=== PATIENT | male | born 1975 | race Caucasian/White ===

== ENCOUNTER 2017-04-28 16:12 | Inpatient (IN) ==
[2017-04-28] MEDS ORDERED: PANTOPRAZOLE 40 MG VIAL IV STA (16:42)
[2017-04-28] MEDS ORDERED: METOCLOPRAMIDE 10 MG/2 ML VIAL IV STA (16:42)
[2017-04-28] MEDS ORDERED: SODIUM CHLORIDE 0.9% 1,000 ML IV STA (16:42)
[2017-04-28] MEDS ORDERED: ONDANSETRON 4 MG/2 ML VIAL IV STA (16:42)
--- NOTE | 2017-04-28 16:50 | Emergency Department Note ---
Arrival - Arrival Chief Complaint: Abdominal / Flank Pain ED Nursing Triage Note: c/o abd pain for 3 days and n/v. Mode of Arrival: Stretcher Limitations: No Limitations Source: Patient Time Seen by Provider: 04/28/17 16:42 - History of Present Illness HPI Narrative: This 41-year-old white male [facility] resident presents with 3 days of increasing abdominal distention, nausea, and intermittent vomiting. The patient denies any chills, fever, diarrhea, bright red blood per rectum, melena , or abdominal pain. The patient does have a significant history of a bowel obstruction approximately 1 month to 6 weeks ago which was surgically treated and [place]. He has had an uncomplicated convalescence to this date and time. He does relate that his vomitus is nonspecific in appearance and does not appear as coffee grounds or red blood and does report his last bowel movement was last night. He is a resident of [facility] for treatment of undifferentiated schizophrenia and does exhibit bizarre affect and is strangely detached from his situation. Onset (ago): day(s) (Patient presents 3 days post onset of symptoms) Allergies/Adverse Reactions: Allergies Allergy/AdvReac Type Severity Reaction Status Date / Time hydroxyzine [From Vistaril] Allergy Unknown/Unable Verified 04/28/17 16:24 to obtain Home Medications: Home Medications Medication Instructions Recorded Confirmed Type Acetaminophen Tab [Tylenol Tab] 650 mg PO Q6H PRN 04/28/17 04/28/17 History Benztropine Tab [Cogentin Tab] 1 mg PO BID 04/28/17 04/28/17 History Haloperidol 10 mg PO DAILY 04/28/17 04/28/17 History Loperamide Cap [Imodium Cap] 4 mg PO TID PRN 04/28/17 04/28/17 History Magnesium Hydroxide Susp [Milk of 30 ml PO Q12H PRN 04/28/17 04/28/17 History Magnesia] Omeprazole 40 mg PO DAILY 04/28/17 04/28/17 History Ondansetron [Ondansetron Odt] 8 mg PO Q8H PRN 04/28/17 04/28/17 History Sucralfate Tab [Carafate Tab] 1 gm PO TID W/MEALS 04/28/17 04/28/17 History traZODone [Desyrel] 150 mg PO BEDTIME PRN 04/28/17 04/28/17 History Review of System - Review of System 12 point system: reviewed and no additional remarkable complaints except as stated - Review of System Constitutional: Present: as per HPI Gastrointestinal: Present: as per HPI Medical,Surgical,& Family Hx - Medical History Psychological: History of: Schizophrenia Gastrointestinal: History of: GERD, GI Problems (multi abd surgeries and resections; sbo) - Social History Smoking Status: Smoker, status unknown Frequency of Alcohol Use: Occasionally Type of Drug Use: Unknown Exam Physical Examination: GENERAL: Obese white male in no acute distress. HEENT: Normocephalic. No trauma. Moist mucous membranes. EOMI. PERRLA. ENT NML NECK: Supple. No adenopathy. CARDIAC: Regular. No murmurs. Heart rate 94 CHEST: Clear to auscultation. No respiratory distress. O2 sat 95% ABDOMEN: Firm, distended, nontender with hypoactive bowel sounds. Well-healing vertical surgical scar noted EXTREMITIES: No trauma. Normal ROM. No pedal edema. SKIN: No diaphoresis. No rash. NEURO: Alert. Oriented 3 but bizarre affect. Motor, sensory, vibratory intact. No focal deficits. Vital Signs: Vital Signs Temperature 97.9 F 04/28/17 16:20 Pulse Rate 99 H 04/28/17 19:08 Respiratory Rate 18 04/28/17 19:08 Blood Pressure 107/72 04/28/17 19:08 O2 Sat by Pulse Oximetry 98 04/28/17 19:08 Course - Reevaluation(s) Reevaluation #1: Advised the patient and [facility] of the need for hospitalization because of a surgical abdomen. - Consultations Consultation #1: Discussed with Dr. Serrano who will see the patient in the ER for further management and admission. Results - Labs CBC & BMP: 04/28/17 17:34 04/28/17 17:34 Lab Results: I have reviewed the patients labs Labs: I have reviewed the laboratory noted the azotemic renal numbers. - Impressions EKG sinus rhythm at 97 with occasional PAC with normal [place] interval and QRS duration. Evidence of LVH as well as old inferior MD. Nonspecific ST changes with no acute injury pattern noted. - Diagnostic Findings Procedure: CT Abdomen and Pelvis: image reviewed by me, report reviewed by me ( Results revealed free air in the abdomen as well as a closed loop obstruction and rectal stricture) Disposition Clinical Impression: Peritoneal free air, Closed-loop obstruction of the bowel, Rectal stricture, Undifferentiated schizophrenia Case discussed with: patient Disposition: Still a Patient Condition: Guarded Time of Disposition: 19:44
--- NOTE | 2017-04-28 17:20 | EKG Report ---
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
[2017-04-28] MEDS ORDERED: PANTOPRAZOLE 40 MG VIAL IV ONE (17:41)
[2017-04-28] MEDS ORDERED: METOCLOPRAMIDE 10 MG/2 ML VIAL ONE (17:42)
[2017-04-28] MEDS ORDERED: ONDANSETRON 4 MG/2 ML VIAL ONE (17:42)
[2017-04-28 17:44] LABS: Basophils % 0.2 % (0.0-0.8); Eosinophils # 0.1 10*3/uL (0.0-0.87); Hematocrit 41.5 VOL% (42.0-52.0); Hemoglobin 14.4 GM/DL (14.0-18.0); Immature Granulocytes % 0.4 %; Immature Granulocytes Absolute 0.04 #; Lymphocytes # 2.7 10*3/uL (1.4-4.0); Lymphocytes % 29.8 % (21.2-54.2); Mean Corpuscular HGB Conc 34.7 GM/DL (32-36); Mean Corpuscular Hemoglobin 29 PG (27-34); Mean Corpuscular Volume 84.3 FL (87-102); Mean Platelet Volume 11.4 FL (9.6-12.0); Monocytes # 1.1 10*3/uL (0.11-0.8); Monocytes % 11.5 % (1.7-12.7); Neutrophils # 5.3 10*3/uL (1.4-7.4); Neutrophils % 57.1 % (38.7-73.9); Platelet Count 185 T/CUMM (130-400); Red Blood Count 4.92 MC/CUMM (3.8-5.5); Red Cell Distribution Width 13.6 % (9.3-17.3); White Blood Count 9.2 T/CUMM (4-12)
[2017-04-28 18:05] LABS: Albumin 4.1 G/DL (3.4-5.0); Bilirubin,Total 0.5 MG/DL (0.2-1.0); Calcium 8.5 MG/DL (8.5-10.1); Osmolality,Calculated 281.2 MOS/KG (273-304); Potassium 3.9 MMOL/L (3.5-5.1); Total Protein 7.8 G/DL (6.4-8.3); Troponin I Only < 0.015 NG/ML (0.00-0.045)
[2017-04-28 19:30] LABS: Apearance,Urine CLEAR (Clear); Bilirubin,Urine Negative (Negative); Blood, Urine Negative (Negative); Glucose,Urine (UA) Negative (Negative); Ketones,Urine Negative (Negative); Nitrite,Urine Negative (Negative); Protein,Urine Negative; RBC,Urine <1 /HPF (0-4); Urine Color Straw (Yellow); Urine Specific Gravity 1.008 (1.001-1.035); Urine Urobilinogen < 2.0 EU/DL (0.2-1.0); WBC,Urine <1 /HPF (0-6)
[2017-04-28] MEDS ORDERED: SODIUM CHLORIDE 0.9% 2,000 ML IV STA (19:40)
--- NOTE | 2017-04-28 19:41 | CT Report ---
CT abdomen pelvis w con Indication: Small bowel obstruction. Comparison: None. Technique: CT of the abdomen and pelvis was performed following administration of intravenous contrast. The CT examination was performed using one or more of the following dose reduction techniques: Automatic exposure control, adjustment of the mA and kV according to patient size, or iterative reconstruction techniques. Findings: Lower chest demonstrates no evidence of acute pathology. Free air is noted within the abdomen multiple bubbles of air scattered throughout the gastrohepatic ligament as well as located adjacent to hepatic margin and splenic margin and interposed within the upper right abdomen. Liver demonstrates diffusely low attenuation that could reflect evidence of hepatic steatosis. No focal masses present. Gallbladder is unremarkable. Spleen demonstrates no significant abnormality. The appearance of the pancreas, adrenal glands, and kidneys suggest no evidence of acute pathology. Multiple loops of small bowel are distended and have multiple air-fluid levels present. This involves the distal jejunum and ileum as well as appears to involve the remaining large bowel. In the portal venous axial series, there is a short segment of rectum in which the lumen narrows with persistence of this possible stricture in the delayed phase. A suture line is noted within the upper left abdomen in the region of descending colon and may reflect sequelae of previous hemicolectomy. No specific abnormality of the gastric wall is identified involving the gastric fundus. Pylorus and duodenum are unremarkable. Swirling mesentery is demonstrated within the left upper abdomen with possible transition point located within the swirling mesentery. Midgut volvulus with closed loop obstruction cannot be excluded.. Multiple mesenteric lymph nodes are enlarged measuring up to 7 mm in short axis dimension. Impression: 1. Swirling of mesentery in the left upper abdomen is demonstrated in the region of transition of bowel diameter from distention to normal size. A closed loop obstruction cannot be excluded. The appearance is somewhat confusing as proximal small bowel demonstrates normal caliber and it is difficult to determine whether a point of obstruction possibly from closed loop obstruction within this region of prior surgery is present. Alternatively, a midgut volvulus is not entirely excluded in this region. 2. A possible stricture within the rectum is present, proximal to which there is diffuse distention of remaining large bowel and small bowel with air-fluid levels noted throughout. 3. Enlarged mesenteric lymph nodes are present. 4. Free intraperitoneal air is present. Exact source is uncertain. Findings were discussed with Dr. Capps at 1937 hours. 04/28/2017 7:23 PM PROCEDURE INTERPRETED AT [facility] DEPARTMENT OF RADIOLOGY Final Report Signed by: Dr. Agus Veronica
[2017-04-28 19:58] LABS: PT Patient Result 10.7 SECS
--- NOTE | 2017-04-28 20:49 | General Surg History&Physical ---
Assessment and Plan (1) Peritoneal free air Status: Acute Assessment and plan: Impression: Nausea vomiting, abdominal pain now resolved, now with diarrhea, pneumatosis with a some scattered dots of free air as described in the CT scan. Plan: I reviewed the CT images and report and discussed with Dr. Veronica in radiology. Patient has a normal white blood cell count and his vital signs are stable. He has no abdominal pain and absolutely no tenderness on exam. A remains mildly distended. There is some swirling of mesentery as well as postoperative changes as described. He also has a possible narrowing near the rectum but I could not feel any mass or luminal narrowing on digital rectal exam. He is having multiple bowel movements of diarrhea. Will plan to admit the patient. At this point I think it is most likely a benign cause for his pneumatosis. Will consult GI to get their opinion. He may have a partial bowel obstruction as well. Question of volvulus is also raised but he does not appear to have evidence of any ischemia. Lactic acid levels normal. He does appear mildly dehydrated and will give him some fluid. Recheck his lab work tomorrow. N.p.o. on bowel rest for now. Current Visit: Yes History of Present Illness Chief complaint: Nausea vomiting History of present illness: Mr. Lopez is a 41 year old male who is a patient at [facility] were he is obtaining treatment for schizophrenia. The patient has had nausea vomiting and abdominal pain for the last 3 days. He was brought to the emergency room because of this. He apparently had abdominal distention as well. The abdominal pain has completely resolved and the distention has apparently improved since his admission. He had 3 loose bowel movements in the emergency room. He says he is feeling better now and is not having any nausea or vomiting currently. He gets his dates mixed up a little bit but overall is a decent historian. He said he had surgery a couple of months ago on his colon. A review of the records sent with him indicates that he had colon surgery in June 2014. Patient states he was told at that time they thought he had a blockage and they went in there and removed some colon But afterward told him there was no blockage present at the time of surgery. Also documented is another surgery in 2014 for repair of small bowel tear. He has been afebrile. He currently has no complaints. Home Medications Medication Instructions Recorded Confirmed Type Acetaminophen Tab [Tylenol Tab] 650 mg PO Q6H PRN 04/28/17 04/28/17 History Benztropine Tab [Cogentin Tab] 1 mg PO BID 04/28/17 04/28/17 History Haloperidol 10 mg PO DAILY 04/28/17 04/28/17 History Loperamide Cap [Imodium Cap] 4 mg PO TID PRN 04/28/17 04/28/17 History Magnesium Hydroxide Susp [Milk of 30 ml PO Q12H PRN 04/28/17 04/28/17 History Magnesia] Omeprazole 40 mg PO DAILY 04/28/17 04/28/17 History Ondansetron [Ondansetron Odt] 8 mg PO Q8H PRN 04/28/17 04/28/17 History Sucralfate Tab [Carafate Tab] 1 gm PO TID W/MEALS 04/28/17 04/28/17 History traZODone [Desyrel] 150 mg PO BEDTIME PRN 04/28/17 04/28/17 History Allergies Allergy/AdvReac Type Severity Reaction Status Date / Time hydroxyzine [From Vistaril] Allergy Unknown/Unable Verified 04/28/17 16:24 to obtain Medical,Surgical,& Family Hx - Medical History Psychological: History of: Schizophrenia Gastrointestinal: History of: GERD, GI Problems (multi abd surgeries and resections; sbo) - Surgical History Additional Surgical History: As stated in the history of present illness - Social History Smoking Status: Smoker, status unknown Frequency of Alcohol Use: Occasionally Type of Drug Use: Unknown Exam - Constitutional Vitals: Period Temp Pulse Resp BP Sys/Lee Pulse Ox Last 24 Hr 97.9 F-97.9 F 91-101 18-22 107-151/72-110 96-100 General appearance: no acute distress - Head Head exam: Present: normocephalic - ENT Mouth exam: Present: normal external inspection - Neck Neck exam: Present: normal inspection - Respiratory Respiratory exam: Present: clear to auscultation bilaterally - Cardiovascular Cardiovascular exam: Present: RRR - GI/Abdominal GI/Abdominal exam: Present: soft (He appears moderately distended but is completely nontender to palpation in all 4 quadrants including deep palpation in all 4 quadrants.) - Back Exam Back exam: Present: normal inspection - Neurological Exam Neurological exam: Present: alert Speech: Present: normal (Grossly normal with mild problems articulating.) - Skin Skin exam: Present: normal color Review of systems: Review of systems is limited but other than what was stated in the history of present illness he does not report any other problems Results - Labs CBC & BMP: 04/28/17 17:34 04/28/17 17:34 Lab Results: I have reviewed the past 24 hour labs
[2017-04-28] MEDS ORDERED: ACETAMINOPHEN 325 MG TABLET PO PRN (20:59)
[2017-04-28] MEDS: LACTATED RINGERS 1,000 ML IV SCH (22:47)
[2017-04-29 05:06] LABS: Basophils % 0.6 % (0.0-0.8); Eosinophils # 0.1 10*3/uL (0.0-0.87); Eosinophils % 1.9 % (0.00-10.9); Hematocrit 33.4 VOL% (42.0-52.0); Hemoglobin 11.5 GM/DL (14.0-18.0); Immature Granulocytes % 0.6 %; Immature Granulocytes Absolute 0.03 #; Lymphocytes # 2.5 10*3/uL (1.4-4.0); Lymphocytes % 47.4 % (21.2-54.2); Mean Corpuscular HGB Conc 34.4 GM/DL (32-36); Mean Corpuscular Hemoglobin 29 PG (27-34); Mean Corpuscular Volume 85.4 FL (87-102); Mean Platelet Volume 11.5 FL (9.6-12.0); Monocytes # 0.7 10*3/uL (0.11-0.8); Neutrophils # 1.9 10*3/uL (1.4-7.4); Neutrophils % 35.5 % (38.7-73.9); Platelet Count 142 T/CUMM (130-400); Red Blood Count 3.91 MC/CUMM (3.8-5.5); Red Cell Distribution Width 13.8 % (9.3-17.3); White Blood Count 5.2 T/CUMM (4-12)
[2017-04-29 05:34] LABS: Calcium 7.7 MG/DL (8.5-10.1); Osmolality,Calculated 283.5 MOS/KG (273-304); Potassium 3.9 MMOL/L (3.5-5.1)
[2017-04-29 05:36] LABS: Eosinophils 1 % (0-10); Hypochromasia 1+; Lymphocytes 48 % (20-55); Microcytosis Slight; Segmented Neutrophils 38 % (50-85); Total Cells Counted 100
[2017-04-29 05:37] LABS: Platelet Estimate Adequate
[2017-04-29] MEDS: LACTATED RINGERS 1,000 ML IV SCH ×4 (06:36→23:53)
[2017-04-29] MEDS: PANTOPRAZOLE 40 MG TABLET PO SCH ×2 (08:31→12:27)
[2017-04-29] MEDS: ENOXAPARIN 40 MG/0.4 ML SYRINGE SUBCUT SCH (08:32)
--- NOTE | 2017-04-29 10:19 | General Surgery Progress Note ---
Assessment and Plan - Time spent with patient Time spent with patient: Less than 30 minutes (1) Pneumatosis intestinalis Status: Acute Current Visit: Yes (2) Diarrhea Status: Acute Assessment and plan: 41-year-old white male with history of schizophrenia being treated at [facility] admitted by Dr. Andres last night through the emergency room with abdominal pain nausea vomiting 3 days. He then developed diarrhea and distention. Patient's pain, nausea, vomiting, and diarrhea have now all resolved. CT scan shows shows some pneumatosis with some scattered dots of free air. The patient is afebrile and his white count is normal and his abdomen is benign. He may also have a partial obstruction or questionable volvulus with no evidence of ischemia. Will consult Dr. Ortiz from GI for their opinion. We will also get a Gastrografin enema in x-ray to look for a stricture. We will keep n.p.o. until after his studies are finished but will go ahead and restart his home medications. Discussed with Dr. Andres. Current Visit: Yes (3) Abdominal pain Status: Acute Current Visit: Yes (4) Nausea and vomiting Status: Acute Current Visit: Yes (5) Schizophrenia Status: Acute Current Visit: Yes Subjective Narrative: Patient states he feels much better this morning. He has no abdominal pain, nausea, or vomiting. He has not been passing gas and he has not had a bowel movement since yesterday. Patient is in the CCU as MedSurg overflow. Will be transferred to the floor when bed becomes available. Exam - Constitutional Vitals: Period Temp Pulse Resp BP Sys/Lee Pulse Ox Last 24 Hr 97.9 F-98.6 F 74-102 13-26 91-151/57-110 94-100 Exam: 41-year-old white male, no acute distress, alert and somewhat oriented Chest clear CV regular rate and rhythm Abdomen soft and nontender, hypoactive bowel sounds Extremities no edema Results - Labs CBC & BMP: 04/29/17 04:54 04/29/17 04:54 Lab Results: I have reviewed the past 24 hour labs
--- NOTE | 2017-04-29 12:03 | Gastrointestinal Consult Note ---
Assessment and Plan (1) Abdominal pain Status: Acute Assessment and plan: 04/29-reports of abdominal pain with nausea and vomiting on admission. Patient unable to provide details associated with current illness. CT findings noted as below with pneumatosis. Furthe plan an addendum to followed by Dr. Ortiz. Current Visit: Yes History of Present Illness Chief complaint: Abdominal pain, nausea vomiting History of present illness: Mr. Lopez is a 41 year old male who was admitted to the hospital on last night with complaints of abdominal pain, nausea and vomiting 3 days. Patient is currently obtaining treatment for schizophrenia at [facility] however was brought to our emergency room after complaints of abdominal distention, pain in onset of nausea vomiting. Patient is a poor historian therefore inflammation obtained from chart review. Patient is currently in the CCU however this is due to MedSurg overflow at present time. Patient is unable to provide any details regarding his current illness other than the pain is now resolved following enemas on yesterday. There were no reports of coffee-ground or hematemesis associated with nausea vomiting. He reportedly had multiple diarrhea stools following the administration of enemas on yesterday. There is also a question of colon surgery in June 2014 with no blockage reported at time of surgery as well as a small bowel tear repair 2014 according to patient' s records, which are unavailable for review at this time. His lactic acid levels were noted to be normal on admission. He had a CT of the abdomen with contrast which showed mesentery swirling in the left upper abdomen with inability to exclude a closed loop obstruction as well as inability to exclude a volvulus midgut. Also noted possible rectal stricture with distention of large bowel and small bowel with air-fluid levels and enlarged mesenteric lymph nodes as well as free intraperitoneal air. Surgery is currently following at this time. There are no prior records in our facility database to review. No family is present during visit as well for historical information. Patient is afebrile without leukocytosis. Uncertain as to prior endoscopy in the past. Noted to have elevated BUN/creatinine ratio at 34. Lactic acid levels have remained normal since admission. Home Medications Medication Instructions Recorded Confirmed Type Acetaminophen Tab [Tylenol Tab] 650 mg PO Q6H PRN 04/28/17 04/28/17 History Benztropine Tab [Cogentin Tab] 1 mg PO BID 04/28/17 04/28/17 History Haloperidol 10 mg PO DAILY 04/28/17 04/28/17 History Loperamide Cap [Imodium Cap] 4 mg PO TID PRN 04/28/17 04/28/17 History Magnesium Hydroxide Susp [Milk of 30 ml PO Q12H PRN 04/28/17 04/28/17 History Magnesia] Omeprazole 40 mg PO DAILY 04/28/17 04/28/17 History Ondansetron [Ondansetron Odt] 8 mg PO Q8H PRN 04/28/17 04/28/17 History Sucralfate Tab [Carafate Tab] 1 gm PO TID W/MEALS 04/28/17 04/28/17 History traZODone [Desyrel] 150 mg PO BEDTIME PRN 04/28/17 04/28/17 History Allergies Allergy/AdvReac Type Severity Reaction Status Date / Time hydroxyzine [From Vistaril] Allergy Unknown/Unable Verified 04/28/17 16:24 to obtain Medical,Surgical,& Family Hx - Medical History Psychological: History of: Schizophrenia Gastrointestinal: History of: GERD, GI Problems (multi abd surgeries and resections; colectomy) - Surgical History Abdominal Surgeries: Surgical HX of: Abdominal Surgery (multiple surgeries including a colectomy) - Social History Smoking Status: Smoker, status unknown Frequency of Alcohol Use: Occasionally Type of Drug Use: Unknown ROS unobtainable: due to mental status Exam - Constitutional Vitals: Period Temp Pulse Resp BP Sys/Lee Pulse Ox Last 24 Hr 97.9 F-98.6 F 72-102 13-26 91-151/57-110 94-100 General appearance: normal weight, no acute distress - Head Head exam: Present: normal inspection, normocephalic - Eye Eye exam: Present: other (Lids and conjunctive are unremarkable). Absent: scleral icterus - ENT ENT exam: Present: normal exam, normal oropharynx - Neck Neck exam: Present: normal inspection - Respiratory Respiratory exam: Present: clear to auscultation bilaterally. Absent: rales, rhonchi, wheezes - Cardiovascular Cardiovascular exam: Present: regular rate and rhythm. Absent: diastolic murmur , JVD, systolic murmur - GI/Abdominal GI/Abdominal exam: Present: normal bowel sounds, soft. Absent: ascites, distended, mass, organomegaly, tenderness - Extremities Exam Extremities exam: Present: normal inspection, full ROM - Back Exam Back exam: Present: normal inspection - Neurological Exam Neurological exam: Present: alert, oriented X3 - Psychiatric Psychiatric exam: Present: normal affect, normal mood - Skin Skin exam: Present: normal color, warm, dry Results - Labs CBC & BMP: 04/29/17 04:54 04/29/17 04:54 Lab Results: I have reviewed the past 24 hour labs - Diagnostic Findings Procedure: CT Abdomen and Pelvis: report reviewed by me
[2017-04-29] MEDS: BENZTROPINE 1 MG TABLET PO SCH ×2 (12:25→21:15)
[2017-04-29] MEDS: HALOPERIDOL 5 MG TABLET PO SCH (12:26)
[2017-04-29] MEDS: FLUTICASONE 50 MCG NASAL SPRAY 16 GM BOTTLE BOTH NARES SCH (12:27)
--- NOTE | 2017-04-29 13:59 | Fluoroscopy Report ---
Gastrografin enema Indication:: stricture evaluation Findings: Gastrografin was placed into in the colon under fluoroscopy. There is focal narrowing of the colon in the distal sigmoid with proximal dilated colon, this appears to resolve on the later images. No other definite abnormality seen. Fluoroscopy time 2 minutes 49 seconds Impression: The persistent narrowing on the initial images normalizes later again exam and likely indicates side of severe spasm. No other definite abnormality seen. PROCEDURE INTERPRETED AT [facility] DEPARTMENT OF RADIOLOGY Final Report Signed by: Dr. Abhi Valles
[2017-04-30 07:07] LABS: Basophils % 0.6 % (0.0-0.8); Eosinophils # 0.1 10*3/uL (0.0-0.87); Hemoglobin 10.7 GM/DL (14.0-18.0); Immature Granulocytes % 0.4 %; Immature Granulocytes Absolute 0.02 #; Lymphocytes # 2.1 10*3/uL (1.4-4.0); Lymphocytes % 43.3 % (21.2-54.2); Mean Corpuscular HGB Conc 34.5 GM/DL (32-36); Mean Corpuscular Hemoglobin 30 PG (27-34); Mean Corpuscular Volume 85.4 FL (87-102); Mean Platelet Volume 11.4 FL (9.6-12.0); Monocytes # 0.6 10*3/uL (0.11-0.8); Monocytes % 12.1 % (1.7-12.7); Neutrophils % 42.6 % (38.7-73.9); Platelet Count 148 T/CUMM (130-400); Red Blood Count 3.63 MC/CUMM (3.8-5.5); Red Cell Distribution Width 13.4 % (9.3-17.3); White Blood Count 4.8 T/CUMM (4-12)
[2017-04-30 07:32] LABS: Bilirubin,Total 0.5 MG/DL (0.2-1.0); Calcium 7.9 MG/DL (8.5-10.1); Total Protein 5.6 G/DL (6.4-8.3)
[2017-04-30 07:33] LABS: Osmolality,Calculated 283.1 MOS/KG (273-304); Potassium 3.3 MMOL/L (3.5-5.1)
--- NOTE | 2017-04-30 08:15 | XRay Report ---
XR abdomen 2V Indication: Abdominal distention Comparison: CT 28 April 2017 Findings: There is suggestion of small amount of free air under the right hemidiaphragm. No other free fluid or free air seen. Distended loops of large and small bowel are present similar to previous exam with air-fluid levels. No abnormal calcifications are present. No other abnormality is identified. Impression: No evidence of significant change demonstrated. PROCEDURE INTERPRETED AT [facility] DEPARTMENT OF RADIOLOGY Final Report Signed by: Dr. Abhi Valles
[2017-04-30] MEDS: LACTATED RINGERS 1,000 ML IV SCH ×2 (09:02→16:19)
[2017-04-30] MEDS: ENOXAPARIN 40 MG/0.4 ML SYRINGE SUBCUT SCH (09:03)
[2017-04-30] MEDS: HALOPERIDOL 5 MG TABLET PO SCH (09:03)
[2017-04-30] MEDS: PANTOPRAZOLE 40 MG TABLET PO SCH (09:03)
[2017-04-30] MEDS: BENZTROPINE 1 MG TABLET PO SCH ×2 (09:03→21:05)
[2017-04-30] MEDS: FLUTICASONE 50 MCG NASAL SPRAY 16 GM BOTTLE BOTH NARES SCH (09:06)
--- NOTE | 2017-04-30 10:42 | Gastrointestinal Progress Note ---
Assessment and Plan (1) Abdominal pain Status: Acute Assessment and plan: 04/30-abdominal pain resolved at this time. No other nausea or vomiting. To start clear liquid diet today. Plan an addendum to follow Dr. Ortiz. 04/29-reports of abdominal pain with nausea and vomiting on admission. Patient unable to provide details associated with current illness. CT findings noted as below with pneumatosis. Furthe plan an addendum to followed by Dr. Ortiz. Current Visit: Yes Gastroenterology - PN: Subj Interval history: CC: Abdominal pain Patient is seen, awake and alert lying in bed. States he had an uneventful night and rested well. He denies any abdominal pain, nausea or vomiting at this time. He is afebrile. Gastrografin enema study noted on yesterday. Abdomen is soft, nontender with bowel sounds noted. Stool is noted to be negative for Clostridium difficile. ROS: Denies shortness breath or chest Exam (Progress Note) - Constitutional Vitals: Period Temp Pulse Resp BP Sys/Lee Pulse Ox Last 24 Hr 97.4 F-98.8 F 62-93 16-23 100-122/52-80 95-98 - Other Additional findings: General appearance: normal weight, no acute distress - Head Head exam: Present: normal inspection, normocephalic - Eye Eye exam: Present: other (Lids and conjunctive are unremarkable). Absent: scleral icterus - ENT ENT exam: Present: normal exam, normal oropharynx - Neck Neck exam: Present: normal inspection - Respiratory Respiratory exam: Present: clear to auscultation bilaterally. Absent: rales, rhonchi, wheezes - Cardiovascular Cardiovascular exam: Present: regular rate and rhythm. Absent: diastolic murmur , JVD, systolic murmur - GI/Abdominal GI/Abdominal exam: Present: normal bowel sounds, soft. Absent: ascites, distended, mass, organomegaly, tenderness - Extremities Exam Extremities exam: Present: normal inspection, full ROM - Back Exam Back exam: Present: normal inspection - Neurological Exam Neurological exam: Present: alert, oriented X3 - Psychiatric Psychiatric exam: Present: normal affect, normal mood - Skin Skin exam: Present: normal color, warm, dry Results - Labs CBC & BMP: 04/30/17 05:34 04/30/17 05:34 Lab Results: I have reviewed the past 24 hour labs
[2017-04-30] MEDS: METOCLOPRAMIDE 10 MG/2 ML VIAL IV SCH ×2 (11:15→18:01)
--- NOTE | 2017-04-30 12:22 | General Surgery Progress Note ---
Assessment and Plan - Time spent with patient Time spent with patient: Less than 30 minutes (1) Pneumatosis intestinalis Status: Acute Current Visit: Yes (2) Diarrhea Status: Acute Assessment and plan: 41-year-old white male with history of schizophrenia being treated at [facility] admitted by Dr. Andres last night through the emergency room with abdominal pain nausea vomiting 3 days. He then developed diarrhea and distention. Patient's pain, nausea, vomiting, and diarrhea have now all resolved. CT scan shows shows some pneumatosis with some scattered dots of free air. The patient is afebrile and his white count is normal and his abdomen is benign. He may also have a partial obstruction or questionable volvulus with no evidence of ischemia. Will consult Dr. Ortiz from GI for their opinion. We will also get a Gastrografin enema in x-ray to look for a stricture. We will keep n.p.o. until after his studies are finished but will go ahead and restart his home medications. Discussed with Dr. Andres. 04/30/2017 patient still feels good today. Abdominal exam is benign and x-ray with no change. Will start patient on a clear liquid diet and Reglan and see how he does. Repeat an abdominal x-ray in the morning. Hold patient over the weekend and repeat a CT scan on Thursday. Dr. Andres has seen and examined patient and further recommendations to follow. Current Visit: Yes (3) Abdominal pain Status: Acute Current Visit: Yes (4) Nausea and vomiting Status: Acute Current Visit: Yes (5) Schizophrenia Status: Acute Current Visit: Yes Subjective Narrative: Patient has no complaints of abdominal pain, nausea, or vomiting. Patient states he is passing gas. Per nursing he had a large bowel movement last night due to the Gastrografin enema but nothing so far today. Exam - Constitutional Vitals: Period Temp Pulse Resp BP Sys/Lee Pulse Ox Last 24 Hr 97.4 F-98.8 F 62-90 17-23 100-122/52-80 95-98 Exam: 41-year-old white male, no acute distress, alert and oriented Chest clear CV regular rate and rhythm abdomen protuberant, soft, nontender Extremities no edema Results - Labs CBC & BMP: 04/30/17 05:34 04/30/17 05:34 Lab Results: I have reviewed the past 24 hour labs - Diagnostic Findings Procedure: X-ray: report reviewed by me (Distended loops of large and small bowel present similar to previous exam.)
[2017-04-30] MEDS: POTASSIUM CHLORIDE 20 MEQ TABLET PO PRN ×3 (12:54→18:01)
[2017-05-01] MEDS: LACTATED RINGERS 1,000 ML IV SCH ×5 (03:46→20:55)
[2017-05-01] MEDS: METOCLOPRAMIDE 10 MG/2 ML VIAL IV SCH ×3 (03:47→18:14)
[2017-05-01 05:22] LABS: Basophils % 0.5 % (0.0-0.8); Eosinophils # 0.1 10*3/uL (0.0-0.87); Eosinophils % 1.8 % (0.00-10.9); Hematocrit 31.2 VOL% (42.0-52.0); Hemoglobin 10.6 GM/DL (14.0-18.0); Immature Granulocytes % 0.5 %; Immature Granulocytes Absolute 0.02 #; Lymphocytes # 2.2 10*3/uL (1.4-4.0); Mean Corpuscular Hemoglobin 29 PG (27-34); Mean Corpuscular Volume 84.8 FL (87-102); Mean Platelet Volume 11.3 FL (9.6-12.0); Monocytes # 0.5 10*3/uL (0.11-0.8); Monocytes % 10.5 % (1.7-12.7); Neutrophils # 1.6 10*3/uL (1.4-7.4); Neutrophils % 35.7 % (38.7-73.9); Platelet Count 147 T/CUMM (130-400); Red Blood Count 3.68 MC/CUMM (3.8-5.5); Red Cell Distribution Width 13.3 % (9.3-17.3); White Blood Count 4.4 T/CUMM (4-12)
[2017-05-01 05:48] LABS: Calcium 8.6 MG/DL (8.5-10.1); Magnesium 2.3 MG/DL (1.8-2.4); Potassium 3.3 MMOL/L (3.5-5.1)
[2017-05-01 06:24] LABS: Band Neutrophils 1 % (0-10); Eosinophils 3 % (0-10); Hypochromasia 1+; Lymphocytes 53 % (20-55); Microcytosis 1+; Segmented Neutrophils 37 % (50-85); Total Cells Counted 100
[2017-05-01 06:25] LABS: Atypical Lymphocytes Few; Platelet Estimate Adequate
--- NOTE | 2017-05-01 08:26 | XRay Report ---
XR abdomen 2V Indication: Distended bowel loops Comparison: 30 April 2017 Findings: No free fluid or free air seen. Distended loops of bowel are present with air-fluid levels, may be slightly improved when compared to previous exam. There is suggestion of free air present, similar to previous study. No abnormal calcifications are present. No other abnormality is identified. Impression: No evidence of abnormality demonstrated PROCEDURE INTERPRETED AT [facility] DEPARTMENT OF RADIOLOGY Final Report Signed by: Dr. Abhi Valles
[2017-05-01] MEDS: HALOPERIDOL 5 MG TABLET PO SCH (09:06)
[2017-05-01] MEDS: BENZTROPINE 1 MG TABLET PO SCH ×2 (09:06→21:26)
[2017-05-01] MEDS: FLUTICASONE 50 MCG NASAL SPRAY 16 GM BOTTLE BOTH NARES SCH (09:07)
[2017-05-01] MEDS: ENOXAPARIN 40 MG/0.4 ML SYRINGE SUBCUT SCH (09:07)
[2017-05-01] MEDS: PANTOPRAZOLE 40 MG TABLET PO SCH (09:17)
--- NOTE | 2017-05-01 09:51 | Gastrointestinal Progress Note ---
Assessment and Plan (1) Abdominal pain Status: Acute Assessment and plan: 05/01-no complaints of abdominal pain. No nausea or vomiting. Tolerating clear liquid diet. Advance to full liquids and continue to monitor. Plan an addendum to follow with Dr. Ortiz 04/30-abdominal pain resolved at this time. No other nausea or vomiting. To start clear liquid diet today. Plan an addendum to follow Dr. Ortiz. 04/29-reports of abdominal pain with nausea and vomiting on admission. Patient unable to provide details associated with current illness. CT findings noted as below with pneumatosis. Furthe plan an addendum to followed by Dr. Ortiz. Current Visit: Yes Gastroenterology - PN: Subj Interval history: CC: Abdominal pain Patient seen awake and alert receiving morning care. He denies any abdominal pain, nausea or vomiting. He states he had a normal bowel movement as well this morning. He is afebrile without leukocytosis. Stools are negative for Clostridium difficile. He is tolerating his diet well and will advance his diet at this time. He is noted to have a CT of abdomen scheduled for Thursday. Abdomen is soft, nontender. ROS: Denies shortness of breath or chest pain Exam (Progress Note) - Constitutional Vitals: Period Temp Pulse Resp BP Sys/Lee Pulse Ox Last 24 Hr 97.4 F-98.9 F 56-94 19-22 105-159/53-82 95-98 - Other Additional findings: General appearance: normal weight, no acute distress - Head Head exam: Present: normal inspection, normocephalic - Eye Eye exam: Present: other (Lids and conjunctive are unremarkable). Absent: scleral icterus - ENT ENT exam: Present: normal exam, normal oropharynx - Neck Neck exam: Present: normal inspection - Respiratory Respiratory exam: Present: clear to auscultation bilaterally. Absent: rales, rhonchi, wheezes - Cardiovascular Cardiovascular exam: Present: regular rate and rhythm. Absent: diastolic murmur , JVD, systolic murmur - GI/Abdominal GI/Abdominal exam: Present: normal bowel sounds, soft. Absent: ascites, distended, mass, organomegaly, tenderness - Extremities Exam Extremities exam: Present: normal inspection, full ROM - Back Exam Back exam: Present: normal inspection - Neurological Exam Neurological exam: Present: alert, oriented X3 - Psychiatric Psychiatric exam: Present: normal affect, normal mood - Skin Skin exam: Present: normal color, warm, dry Results - Labs CBC & BMP: 05/01/17 04:38 05/01/17 04:38 Lab Results: I have reviewed the past 24 hour labs
--- NOTE | 2017-05-01 10:21 | General Surgery Progress Note ---
Assessment and Plan (1) Peritoneal free air Status: Acute Assessment and plan: Impression: Nausea vomiting now resolved Plan: This is a 41-year-old male with schizophrenia who was admitted with nausea and vomiting prior to arrival. His abdomen has remained somewhat distended but he states this is normal for him. His CT scan showed pneumatosis , scattered dots of free air, mesenteric swirling, and a possible rectal stricture. All of this with normal vital signs, normal labs, and a completely nontender abdomen. He was started on Reglan. He has been tolerating clear liquids and has remained asymptomatic. Gastrografin enema showed there was no stricture. He is being advanced to regular diet today. He is had 2 bowel movements that are more normal in the last 24 hours. No further diarrhea. We will continue to observe him over the weekend and plan for CT scan on Thursday. Current Visit: Yes Subjective Narrative: Says he feels fine. He has been tolerating clears and is excited because he is going to get regular food. He has no abdominal pain. His abdomen is protuberant and I suspect he has some chronic distention and intrinsic motility problems. He is on Reglan. He has had more normal bowel movements. Exam - Constitutional Vitals: Period Temp Pulse Resp BP Sys/Lee Pulse Ox Last 24 Hr 97.4 F-98.9 F 56-94 19-22 105-159/53-82 95-98 General appearance: no acute distress - Head Head exam: Present: normocephalic - Respiratory Respiratory exam: Present: clear to auscultation bilaterally - Cardiovascular Cardiovascular exam: Present: RRR - GI/Abdominal GI/Abdominal exam: Present: soft (Protuberant, distended but otherwise completely benign) - Extremities Exam Extremities exam: Present: normal inspection - Back Exam Back exam: Present: normal inspection - Neurological Exam Neurological exam: Present: alert Speech: Present: normal - Skin Skin exam: Present: normal color Results - Labs CBC & BMP: 05/01/17 04:38 05/01/17 04:38 Lab Results: I have reviewed the past 24 hour labs
[2017-05-02] MEDS: METOCLOPRAMIDE 10 MG/2 ML VIAL IV SCH ×3 (03:44→18:04)
[2017-05-02] MEDS: LACTATED RINGERS 1,000 ML IV SCH ×2 (08:55→17:50)
[2017-05-02] MEDS: FLUTICASONE 50 MCG NASAL SPRAY 16 GM BOTTLE BOTH NARES SCH (09:58)
[2017-05-02] MEDS: PANTOPRAZOLE 40 MG TABLET PO SCH (09:58)
[2017-05-02] MEDS: ENOXAPARIN 40 MG/0.4 ML SYRINGE SUBCUT SCH (09:58)
[2017-05-02] MEDS: BENZTROPINE 1 MG TABLET PO SCH ×2 (09:58→21:26)
[2017-05-02] MEDS: HALOPERIDOL 5 MG TABLET PO SCH (09:58)
--- NOTE | 2017-05-02 11:47 | Event Note ---
05/02/2017. Patient is fairly stable sitting up moving around tolerating diet so far. Abdomen seems unremarkable with no specific tenderness localized anywhere. No clear etiology for his present problem pneumatosis and he is just being treated conservatively at this time.
[2017-05-03] MEDS: METOCLOPRAMIDE 10 MG/2 ML VIAL IV SCH ×3 (03:32→18:41)
[2017-05-03] MEDS: ACETAMINOPHEN 325 MG TABLET PO PRN ×2 (06:33→11:35)
[2017-05-03] MEDS: LACTATED RINGERS 1,000 ML IV SCH ×3 (06:34→17:45)
--- NOTE | 2017-05-03 08:41 | Event Note ---
05/03/2017 Patient is doing fairly well had a apparently a normal bowel movement today. He is not complaining of any abdominal pain the abdomen is soft and bowel sounds are active. He appears to be stable at this point with no progression of any problems.
[2017-05-03] MEDS: BENZTROPINE 1 MG TABLET PO SCH ×2 (09:49→21:45)
[2017-05-03] MEDS: PANTOPRAZOLE 40 MG TABLET PO SCH (09:50)
[2017-05-03] MEDS: ENOXAPARIN 40 MG/0.4 ML SYRINGE SUBCUT SCH (09:50)
[2017-05-03] MEDS: HALOPERIDOL 5 MG TABLET PO SCH (09:50)
[2017-05-03] MEDS: FLUTICASONE 50 MCG NASAL SPRAY 16 GM BOTTLE BOTH NARES SCH (09:50)
[2017-05-04] MEDS: LACTATED RINGERS 1,000 ML IV SCH ×3 (03:20→21:09)
[2017-05-04] MEDS: METOCLOPRAMIDE 10 MG/2 ML VIAL IV SCH ×3 (03:20→21:08)
[2017-05-04] MEDS: ONDANSETRON 4 MG/2 ML VIAL IV PRN ×2 (04:52→09:32)
[2017-05-04 06:39] LABS: Calcium 8.9 MG/DL (8.5-10.1); Magnesium 2.3 MG/DL (1.8-2.4); Potassium 3.7 MMOL/L (3.5-5.1)
--- NOTE | 2017-05-04 07:53 | Hematology Consult ---
Assessment and Plan (1) Thrombocytopenia Status: Acute Assessment and plan: I think the best approach for his thrombocytopenia at this point is to check the lab to make sure it is accurate. I will also go ahead and check a fibrinogen level. Hopefully his low platelet count is just a superior this lab finding and will be back within normal range on his repeat lab testing. If it is still low on repeat testing, I do not see any obvious offending agent that he has taken the need to be discontinued. Surgery has already discontinued his Lovenox. If he is ready for discharge back to his [facility] from a surgery standpoint, a repeat platelet count can be checked there later this week. Current Visit: Yes (2) Peritoneal free air Status: Acute Current Visit: Yes (3) Pneumatosis intestinalis Status: Acute Current Visit: Yes (4) Diarrhea Status: Acute Current Visit: Yes (5) Abdominal pain Status: Acute Current Visit: Yes (6) Nausea and vomiting Status: Acute Current Visit: Yes (7) Schizophrenia Status: Acute Current Visit: Yes History of Present Illness - Consult Narrative History of present illness: Mr. Lopez is a 41 year old male with a history of schizophrenia who is admitted from [facility] with abdominal pain and nausea. He was found to have air in his abdomen on a CT scan. His symptoms resolved within just a couple hours of being in the hospital by the etiology of the free air in his abdomen is unknown. He has not had any type of surgical intervention since he has done so well with conservative measures. Hematology has been consulted to see him due to an overnight drop in his platelet count from over 140 down to 39,000. He denies any bruising or bleeding. All other cell lines have not changed and are within normal range. There is not appear to be any laboratory or clinical evidence of TTP over some other consumptive process. CC: Sage Andres MD - Home Medications and Allergies Home Medications: Home Medications Medication Instructions Recorded Confirmed Type Acetaminophen Tab [Tylenol Tab] 650 mg PO Q6H PRN 04/28/17 04/28/17 History Benztropine Tab [Cogentin Tab] 1 mg PO BID 04/28/17 04/28/17 History Haloperidol 10 mg PO DAILY 04/28/17 04/28/17 History Loperamide Cap [Imodium Cap] 4 mg PO TID PRN 04/28/17 04/28/17 History Magnesium Hydroxide Susp [Milk of 30 ml PO Q12H PRN 04/28/17 04/28/17 History Magnesia] Omeprazole 40 mg PO DAILY 04/28/17 04/28/17 History Ondansetron [Ondansetron Odt] 8 mg PO Q8H PRN 04/28/17 04/28/17 History Sucralfate Tab [Carafate Tab] 1 gm PO TID W/MEALS 04/28/17 04/28/17 History traZODone [Desyrel] 150 mg PO BEDTIME PRN 04/28/17 04/28/17 History Allergies/Adverse Reactions: Allergies Allergy/AdvReac Type Severity Reaction Status Date / Time hydroxyzine [From Vistaril] Allergy Unknown/Unable Verified 04/28/17 16:24 to obtain Medical,Surgical,& Family Hx - Medical History Psychological: History of: Schizophrenia Gastrointestinal: History of: GERD, GI Problems (multi abd surgeries and resections; colectomy) - Surgical History Abdominal Surgeries: Surgical HX of: Abdominal Surgery (multiple surgeries including a colectomy) - Social History Smoking Status: Smoker, status unknown Frequency of Alcohol Use: Occasionally Type of Drug Use: Unknown 12 point system: reviewed and no additional remarkable complaints except as stated Exam - Constitutional Vitals: Period Temp Pulse Resp BP Sys/Lee Pulse Ox Last 24 Hr 97.2 F-98.5 F 57-90 15-23 109-134/63-82 93-98 General appearance: normal weight, no acute distress - Head Head Exam: Present: normocephalic, atraumatic - Eye Eye Exam: Present: EOMI Pupils: Present: PERRL - ENT ENT exam: Present: normal exam, normal oropharynx - Neck Neck exam: Absent: lymphadenopathy, thyromegaly - Respiratory Respiratory exam: Present: CTAB. Absent: wheezes - Cardiovascular Cardiovascular exam: Present: RRR. Absent: JVD, systolic murmur - GI/Abdominal GI/Abdominal exam: Present: soft. Absent: ascites, distended, firm, mass - Neurological Exam Neurological exam: Present: alert, oriented X3 - Psychiatric Psychiatric exam: Present: normal affect, normal mood - Skin Skin exam: Present: warm, dry Results - Labs CBC & BMP: 05/04/17 05:33 05/04/17 05:33 Lab Results: I have reviewed the past 24 hour labs - Diagnostic Findings Procedure: CT Abdomen and Pelvis: report reviewed by me
[2017-05-04 08:21] LABS: Basophils % 0.2 % (0.0-0.8); Eosinophils # 0.1 10*3/uL (0.0-0.87); Eosinophils % 1.1 % (0.00-10.9); Hematocrit 33.6 VOL% (42.0-52.0); Hemoglobin 11.5 GM/DL (14.0-18.0); Immature Granulocytes % 0.8 %; Immature Granulocytes Absolute 0.08 #; Lymphocytes # 2.3 10*3/uL (1.4-4.0); Lymphocytes % 24.4 % (21.2-54.2); Mean Corpuscular HGB Conc 34.2 GM/DL (32-36); Mean Corpuscular Hemoglobin 29 PG (27-34); Mean Corpuscular Volume 85.3 FL (87-102); Mean Platelet Volume 11.3 FL (9.6-12.0); Monocytes # 0.8 10*3/uL (0.11-0.8); Monocytes % 8.2 % (1.7-12.7); Neutrophils # 6.2 10*3/uL (1.4-7.4); Neutrophils % 65.3 % (38.7-73.9); Red Blood Count 3.94 MC/CUMM (3.8-5.5); Red Cell Distribution Width 13.7 % (9.3-17.3); White Blood Count 9.5 T/CUMM (4-12)
[2017-05-04 08:28] LABS: Platelet Count 178 T/CUMM (130-400)
[2017-05-04] MEDS: HALOPERIDOL 5 MG TABLET PO SCH (09:32)
[2017-05-04] MEDS: PANTOPRAZOLE 40 MG TABLET PO SCH (09:32)
[2017-05-04] MEDS: BENZTROPINE 1 MG TABLET PO SCH ×2 (09:32→21:20)
[2017-05-04] MEDS: FLUTICASONE 50 MCG NASAL SPRAY 16 GM BOTTLE BOTH NARES SCH (09:33)
--- NOTE | 2017-05-04 09:50 | CT Report ---
CT of the abdomen and pelvis without intravenous contrast. Oral contrast was administered. Axial images were obtained with sagittal and coronal 2-D reconstructions. There is significant limitation secondary to patient motion. Comparison is made to a previous exam of April 28, 2017. Indication: Pneumatosis. Bowel distention. The heart size is normal. There are small bilateral pleural effusions present. There is interlobar septal thickening present. There is also an increase in the fine interstitial markings. This is a new finding, and most commonly is related to pulmonary edema. The liver is enlarged with a length of 22.2 cm. There is fatty infiltration of the liver. The spleen is upper limits of normal in size. There is no adrenal enlargement. There is fatty replacement of the pancreas. The kidneys are normal in size, location, and contour. No space-occupying masses. No nephrolithiasis. No hydronephrosis. The abdominal aorta is of normal caliber. There is no calcific plaque present within it. The amount of motion present significantly limits evaluation of the bowel wall. There is considerable dilatation of bowel, predominantly colon. The degree of distention is very similar to the previous exam. The amount of free air in the amount of pneumatosis shows improvement. Contrast material extends to the transverse colon. Clinical correlation as to whether this is from the initial exam or new contrast given for this exam. There is free fluid present within the pelvis, mild to moderate in amount. The osseous structures are stable. Impression: The study is limited due to significant degree of motion. The amount of bowel distention is similar to the previous exam, but free air or pneumatosis shows improvement. There is now mild to moderate free fluid seen within the pelvis. There is now interstitial prominence consistent with pulmonary edema. The liver is enlarged. The CT exam was performed using one or more of the following dose reduction techniques: Automated exposure control, adjustment of the mA and/or kV according to patient size, or use of iterative reconstruction technique. PROCEDURE INTERPRETED AT [facility] DEPARTMENT OF RADIOLOGY Final Report Signed by: Dr. Tracie Jane
--- NOTE | 2017-05-04 12:34 | Discharge Summary ---
Hospital Course - Hospital Course Hospital Course: 41-year-old white male that was in [facility] for treatment for schizophrenia admitted by Dr. Andres on 04/28/2017 with nausea, vomiting, and abdominal pain for 3 days. He apparently had abdominal distention as well but that it completely resolved by the time Dr. Andres sometime in the ED. Patient had normal white count and normal vital signs. CT scan showed some swirling of the mesentery as well as postoperative changes with possible narrowing near the rectum. He was also found to have pneumatosis on CT and partial bowel obstruction with a question of a volvulus. He was started on IV fluids, kept n.p.o., and IV antibiotics were started. Dr. Ortiz from GI was consulted. Gastrografin enema was obtained to check for narrowing of the rectum and this was normal. Patient was started on Reglan by GI for some questionable motility issues. Patient was asymptomatic with no nausea or vomiting and his diarrhea and distention had resolved. Today he is afebrile, abdomen is soft and nontender, no nausea or vomiting and he is tolerating a regular diet. Repeat CT scan done today showing the distention is the same but the pneumatosis has shown improvement. Patient's lab draw this morning showed a significant platelet drop and hematology was consulted. labs were redrawn and it was a lab error. Overall patient is doing great he will be discharged back to [facility] today on Reglan. He will not need to follow-up with Dr. Andres but he can follow-up with Dr. Ortiz on a as needed basis. Complete discharge instructions were given to the patient. Care coordination, chart review, and completed discharge paperwork took approximately 37 minutes. - Time spent with patient Time with patient DS: Greater than 30 minutes Diagnosis - Discharge Diagnosis (1) Pneumatosis intestinalis Status: Acute (2) Diarrhea Status: Acute (3) Abdominal pain Status: Acute (4) Nausea and vomiting Status: Acute (5) Schizophrenia Status: Acute Discharge Plan - Discharge Data Disposition: Disch/Xfer-Ip Rehab Fac Condition at Discharge: Stable Discharge Diet: advance to your usual diet Activity: resume usual activities as tolerated Contact your physician if you experience:: fever over 101, Nausea/Vomiting - Discharge Medications New Metoclopramide Tab [Reglan Tab] 10 mg PO ACHS #60 tablet Continue Sucralfate Tab [Carafate Tab] 1 gm PO TID W/MEALS Omeprazole 40 mg PO DAILY Haloperidol 10 mg PO DAILY Ondansetron [Ondansetron Odt] 8 mg PO Q8H PRN PRN Reason: Vomiting Magnesium Hydroxide Susp [Milk of Magnesia] 30 ml PO Q12H PRN PRN Reason: Constipation Loperamide Cap [Imodium Cap] 4 mg PO TID PRN PRN Reason: Diarrhea Benztropine Tab [Cogentin Tab] 1 mg PO BID Acetaminophen Tab [Tylenol Tab] 650 mg PO Q6H PRN PRN Reason: Pain traZODone [Desyrel] 150 mg PO BEDTIME PRN PRN Reason: Insomnia - Follow Up or Referral Follow Up: Davy Ortiz MD [Physician] - (prn ) - Forms/Instructions Exam - Constitutional Vitals: Period Temp Pulse Resp BP Sys/Lee Pulse Ox Last 24 Hr 97.2 F-98.5 F 57-90 15-23 109-135/63-86 94-98 Discharge Results Labs on day of discharge: Labs from last 24 hours 05/04/17 05/04/17 05/04/17 08:05 08:04 05:33 WBC 9.5 D RBC 3.94 Hgb 11.5 L Hct 33.6 L MCV 85.3 L MCH 29 MCHC 34.2 RDW 13.7 Plt Count 178 D MPV 11.3 Neut % (Auto) 65.3 Lymph % (Auto) 24.4 Hemphill % (Auto) 8.2 Eos % (Auto) 1.1 Baso % (Auto) 0.2 LUCs % Neut # (Auto) 6.2 Lymph # (Auto) 2.3 Hemphill # (Auto) 0.8 Eos # (Auto) 0.1 Baso # (Auto) 0.0 LUCs # Immature Gran % 0.8 Nucleated RBC % 0.0 Immature Gran # 0.08 Nucleated RBCs # 0.00 Hypersegmented Neuts Vacuolated Neuts Atypical Lymphocytes Atypic/Reactive Lymphs Smudge Cells Toxic Granulation Dohle Bodies Platelet Estimate Giant Platelets Platelet Satelliting Immature Plt Fraction 0.0 RBC Morphology Polychromasia Hypochromasia Poikilocytosis Basophilic Stippling Anisocytosis Microcytosis Macrocytosis Spherocytes Pappenheimer Bodies Sickle Cells Target Cells Tear Drop Cells Ovalocytes Oval Macrocytes Stomatocytes Helmet Cells Sanderson-Rising Sun Bodies Viet Cells Elliptocytes Acanthocytes (Spur) Rouleaux Schistocytes Morphology Comment Fibrinogen 293 Sodium 143 Potassium 3.7 Chloride 109 H Carbon Dioxide 25 Anion Gap 12.7 BUN 11 Creatinine 0.90 GFR Calculation 137 BUN/Creatinine Ratio 12.00 Glucose 91 Calculated Osmolality 283.0 Calcium 8.9 Magnesium 2.3 05/04/17 05:33 WBC Cancelled RBC Cancelled Hgb Cancelled Hct Cancelled MCV Cancelled MCH Cancelled MCHC Cancelled RDW Cancelled Plt Count Cancelled MPV Cancelled Neut % (Auto) Cancelled Lymph % (Auto) Cancelled Hemphill % (Auto) Cancelled Eos % (Auto) Cancelled Baso % (Auto) Cancelled LUCs % Cancelled Neut # (Auto) Cancelled Lymph # (Auto) Cancelled Hemphill # (Auto) Cancelled Eos # (Auto) Cancelled Baso # (Auto) Cancelled LUCs # Cancelled Immature Gran % Cancelled Nucleated RBC % Cancelled Immature Gran # Cancelled Nucleated RBCs # Cancelled Hypersegmented Neuts Cancelled Vacuolated Neuts Cancelled Atypical Lymphocytes Cancelled Atypic/Reactive Lymphs Cancelled Smudge Cells Cancelled Toxic Granulation Cancelled Dohle Bodies Cancelled Platelet Estimate Cancelled Giant Platelets Cancelled Platelet Satelliting Cancelled Immature Plt Fraction Cancelled RBC Morphology Cancelled Polychromasia Cancelled Hypochromasia Cancelled Poikilocytosis Cancelled Basophilic Stippling Cancelled Anisocytosis Cancelled Microcytosis Cancelled Macrocytosis Cancelled Spherocytes Cancelled Pappenheimer Bodies Cancelled Sickle Cells Cancelled Target Cells Cancelled Tear Drop Cells Cancelled Ovalocytes Cancelled Oval Macrocytes Cancelled Stomatocytes Cancelled Helmet Cells Cancelled Sanderson-Rising Sun Bodies Cancelled [place] Cells Cancelled Elliptocytes Cancelled Acanthocytes (Spur) Cancelled Rouleaux Cancelled Schistocytes Cancelled Morphology Comment Cancelled Fibrinogen Sodium Potassium Chloride Carbon Dioxide Anion Gap BUN Creatinine GFR Calculation BUN/Creatinine Ratio Glucose Calculated Osmolality Calcium Magnesium DS: Provider Date of admission: 04/28/17 20:59 Primary care physician: . No PCP Attending physician on admission: Sage Andres MD Consults: 04/29/17 08:35 Consult to Physician [CONS] Routine Comment: abd p, N/V Consulting Provider: Davy Ortiz Consulting Provider Notified: Yes When should Consulting Provider be notified: Now Consult to Specialist Group: Gastroenterology When should Consulting Provider be notified: Now Person Notified: OWEN ORTIZ Date Notified: 04/29/17 Time Notified: 11:48 Discharging clinician: KIMO Rubio Expected date of discharge: 05/04/17
[2017-05-04] MEDS: ACETAMINOPHEN 325 MG TABLET PO PRN (18:18)
[2017-05-05] MEDS: METOCLOPRAMIDE 10 MG/2 ML VIAL IV SCH (05:34)
[2017-05-05] MEDS: LACTATED RINGERS 1,000 ML IV SCH (05:34)
[2017-05-05 07:45] VITALS: BP 133/80
[2017-05-05] MEDS: BENZTROPINE 1 MG TABLET PO SCH ×2 (09:08→09:09)
[2017-05-05] MEDS: HALOPERIDOL 5 MG TABLET PO SCH (09:09)
[2017-05-05] MEDS: FLUTICASONE 50 MCG NASAL SPRAY 16 GM BOTTLE BOTH NARES SCH (09:10)
[2017-05-05] MEDS: PANTOPRAZOLE 40 MG TABLET PO SCH (09:11)
--- NOTE | 2017-05-05 10:39 | General Surgery Progress Note ---
Assessment and Plan - Time spent with patient Time spent with patient: Less than 30 minutes (1) Pneumatosis intestinalis Status: Acute Current Visit: Yes (2) Diarrhea Status: Acute Assessment and plan: 41-year-old white male with history of schizophrenia being treated at [facility] admitted by Dr. Andres last night through the emergency room with abdominal pain nausea vomiting 3 days. He then developed diarrhea and distention. Patient's pain, nausea, vomiting, and diarrhea have now all resolved. CT scan shows shows some pneumatosis with some scattered dots of free air. The patient is afebrile and his white count is normal and his abdomen is benign. He may also have a partial obstruction or questionable volvulus with no evidence of ischemia. Will consult Dr. Ortiz from GI for their opinion. We will also get a Gastrografin enema in x-ray to look for a stricture. We will keep n.p.o. until after his studies are finished but will go ahead and restart his home medications. Discussed with Dr. Andres. 04/30/2017 patient still feels good today. Abdominal exam is benign and x-ray with no change. Will start patient on a clear liquid diet and Reglan and see how he does. Repeat an abdominal x-ray in the morning. Hold patient over the weekend and repeat a CT scan on Thursday. Dr. Andres has seen and examined patient and further recommendations to follow. 05/05/2017 patient is having problems with eating or abdominal pain. His antibiotics have been stopped along with his IV fluids. Reglan will be continued. Patient is awaiting a bed at [facility]. Okay for him to transfer soon as bed is available. Discussed with Dr. Andres. Current Visit: Yes (3) Abdominal pain Status: Acute Current Visit: Yes (4) Nausea and vomiting Status: Acute Current Visit: Yes (5) Schizophrenia Status: Acute Current Visit: Yes Subjective Narrative: Patient has no complaints. He is tolerating a diet without abdominal pain or nausea. He is awaiting placement at [facility]. There is an issue of bed availability. Exam - Constitutional Vitals: Period Temp Pulse Resp BP Sys/Lee Pulse Ox Last 24 Hr 97.1 F-99.2 F 76-85 18-20 128-137/56-86 93-99 Exam: 41-year-old white male, no acute distress, alert and oriented Chest clear CV regular rate and rhythm Abdomen obese, nontender Extremities no edema Results - Labs CBC & BMP: 05/04/17 08:04 05/04/17 05:33 Lab Results: I have reviewed the past 24 hour labs Specialty Discharge - Follow Up or Referrals Follow up with: Davy Ortiz MD [Physician] - (prn )
== END 2017-05-05 11:30 | DRG 254 ==
LOC: N.ED 16:12 → N.EDINP 20:59 → N.CC 22:22 → N.2E 04-29 23:09
PROVIDERS: ADMIT Surgery; ATTEND Surgery